=== PATIENT | female | born 1940 | race Caucasian/White ===

== ENCOUNTER → 2017-06-24 | Outpatient (CLI) | payer MEDICARE ==
[~2017-06-24] MED LIST: ACET-66 PO; BENA1TAB4 PO; CYCL5TAB PO; GLYB2.5T5 PO; INSLAN SQ; LOVA40TA2 PO; METF10002 PO; VITA-328 PO
== END | disposition home or self-care (01) ==
LOC: RADPV 09:41
PROVIDERS: ATTEND Family Medicine
DX: I65.21 Occlusion and stenosis of right carotid artery (principal)
CPT/HCPCS: 93880

== ENCOUNTER → 2017-08-10 | Outpatient (CLI) | payer MEDICARE, MEDICAID | END | disposition home or self-care (01) | LOC: RADPV 12:04 | PROVIDERS: ATTEND Family Medicine | DX: M77.31 Calcaneal spur, right foot (principal); I70.0 Atherosclerosis of aorta ==

== ENCOUNTER 2018-01-31 13:00 | Emergency (ER) | payer MEDICAID, MEDICARE ==
[~2018-01-31] VITALS: Ht 152.4 cm; Wt 67.3 kg
[~2018-01-31 13:00] MED LIST changes: -METF10002 PO; +METF10004 PO
[2018-01-31] MEDS ORDERED: INSNOV SQ (13:13)
[2018-01-31] MEDS ORDERED: VALS160T2 PO (13:13)
[2018-01-31] MEDS ORDERED: CALC-26 PO (13:13)
[2018-01-31] MEDS ORDERED: SITA100 PO (13:13)
[2018-01-31] MEDS ORDERED: LORA10TA7 PO (13:13)
[2018-01-31 13:17] LABS: GLUCOSE,POINT OF CARE 235 MG/DL (70-110)
[2018-01-31] MEDS ORDERED: ALBUTEROL SULFATE 2.5 MG/0.5 ML NEB SOLUTION NEB ONE ×2 (13:45→15:15)
[2018-01-31 13:55] LABS: BASOPHILS % (AUTO) 0.7 % (0.0-2.0); EOSINOPHILS % (AUTO) 1.1 % (1.0-6.0); HEMATOCRIT 39.1 % (36-46); HEMOGLOBIN 13.4 g/dL (12.0-16.0); LYMPHOCYTES # (AUTO) 1.7 K/uL (1.0-4.8); LYMPHOCYTES % (AUTO) 26.5 % (22.0-44.0); MEAN CORPUSCULAR HEMOGLOBIN 32.5 pg (26.0-34.0); MEAN CORPUSCULAR HGB CONC 34.2 G/dL (31.0-37.0); MEAN CORPUSCULAR VOLUME 95 fL (80-100); MONOCYTES # (AUTO) 0.9 K/uL (0.1-1.0); MONOCYTES % (AUTO) 14.8 % (2.0-9.0); NEUTROPHILS # (AUTO) 3.6 K/uL (1.8-7.7); NEUTROPHILS % (AUTO) 56.9 % (40.0-70.0); PLATELET COUNT (AUTO) 222 K/uL (150-450); RED CELL DISTRIBUTION WIDTH 14.6 % (11.5-14.5)
[2018-01-31 14:05] LABS: ANION GAP 4 mmol/L (8-16); CALCIUM, TOTAL 8.7 mg/dL (8.8-10.5); CARBON DIOXIDE 30 mmol/L (22-29); CHLORIDE 103 mmol/L (98-107); CREATININE 0.81 mg/dL (0.60-1.30); GLOMERULAR FILTR. RATE CALC > 60 mL/min (>60); GLUCOSE,RANDOM 169 mg/dL (70-110); POTASSIUM 3.9 mmol/L (3.5-5.1); SODIUM SERUM 137 mmol/L (136-145); UREA NITROGEN, BLOOD 13 mg/dL (7-18)
[2018-01-31 14:11] LABS: ALANINE AMINOTRANSFERASE 30 U/L (12-78); ALBUMIN 3.3 g/dL (3.4-5.0); ALKALINE PHOSPHATASE 71 U/L (46-116); ASPARTATE AMINOTRANSFERASE 26 U/L (15-37); BILIRUBIN,TOTAL 0.2 mg/dL (0.1-1.0); TOTAL PROTEIN, SERUM 7.6 g/dL (6.4-8.2)
[2018-01-31] MEDS ORDERED: 0.9% SODIUM CHLORIDE 5 ML NEB SOLUTION NEB ONE ×2 (14:15→15:19)
[2018-01-31 15:04] VITALS: BP 146/61
[2018-01-31 15:19] LABS: APPEARANCE,URINE CLOUDY (CLEAR); BILIRUBIN,URINE NEGATIVE (NEGATIVE); GLUCOSE, URINE (UA) 100 mg/dL (NEGATIVE); KETONES,URINE NEGATIVE (NEGATIVE); LEUKOCYTE ESTERASE ,URINE SMALL (NEGATIVE); NITRATE,URINE POSITIVE (NEGATIVE); OCCULT BLOOD,URINE TRACE (NEGATIVE); PROTEIN,URINE NEGATIVE (NEGATIVE); UROBILINOGEN,URINE 0.2 mg/dL (<=1.0)
[2018-01-31 15:28] LABS: BACTERIA,URINE Many /HPF (None Seen); RBC,URINE 0-2 /HPF (0-2); SQUAMOUS EPITHELIAL CELL,UR Few /LPF (None Seen)
[2018-01-31 15:39] LABS: INFLUENZA TYPE A NEGATIVE FOR TYPE A (NEGATIVE); INFLUENZA TYPE B NEGATIVE FOR TYPE B (NEGATIVE)
[2018-01-31] MEDS ORDERED: LEVOFLOXACIN 250 MG TABLET PO ONE (16:00)
[2018-01-31] MEDS ORDERED: ALBUTEROL SULFATE HFA 90 MCG/PUFF 8 GM INHALER IH ONE (16:00)
== END 2018-01-31 16:29 | disposition home or self-care (01) ==
LOC: EMS 13:01
DX: J40 Bronchitis, not specified as acute or chronic (principal); N39.0 Urinary tract infection, site not specified; E11.9 Type 2 diabetes mellitus without complications; Z79.4 Long term (current) use of insulin
CPT/HCPCS: 87086; 87804; 93005; 94640; 99285; J3535

== ENCOUNTER 2019-06-17 14:50 | Emergency (ER) | payer SELFPAY ==
[~2019-06-17] VITALS: Ht 152.4 cm; Wt 67.3 kg
[~2019-06-17 14:50] MED LIST changes: -BENA1TAB4 PO; +CALC-26 PO; -CYCL5TAB PO; -GLYB2.5T5 PO; +INSNOV SQ; +LORA10TA7 PO; +METF-446 PO; -METF10004 PO; +SITA100 PO; +VALS160T2 PO; -VITA-328 PO
[2019-06-17 15:15] LABS: GLUCOSE,POINT OF CARE 276 MG/DL (70-110)
[2019-06-17] MEDS ORDERED: PIOG30TA10 PO (15:16)
[2019-06-17] MEDS ORDERED: LISI-662 PO (15:16)
[2019-06-17] MEDS ORDERED: ASPI81 PO (15:16)
[2019-06-17] MEDS ORDERED: IBAN150T16 PO (15:16)
[2019-06-17] MEDS ORDERED: ACETAMINOPHEN 500 MG TABLET PO ONE (17:30)
[2019-06-17] MEDS ORDERED: KETOROLAC TROMETHAMINE 30 MG/ML VIAL IM ONE (19:00)
[2019-06-17 19:25] VITALS: BP 131/66
[2019-06-17 20:17] LABS: APPEARANCE,URINE CLOUDY (CLEAR); BILIRUBIN,URINE NEGATIVE (NEGATIVE); GLUCOSE, URINE (UA) 250 mg/dL (NEGATIVE); KETONES,URINE NEGATIVE (NEGATIVE); LEUKOCYTE ESTERASE ,URINE TRACE (NEGATIVE); NITRATE,URINE POSITIVE (NEGATIVE); OCCULT BLOOD,URINE TRACE (NEGATIVE); PROTEIN,URINE NEGATIVE (NEGATIVE); UROBILINOGEN,URINE 0.2 mg/dL (<=1.0)
[2019-06-17 20:26] LABS: BACTERIA,URINE Many /HPF (None Seen); RBC,URINE 0-2 /HPF (0-2)
[2019-06-17 20:28] LABS: SQUAMOUS EPITHELIAL CELL,UR Rare /LPF (None Seen)
== END 2019-06-17 20:09 | disposition home or self-care (01) ==
LOC: EMS 14:51
DX: N39.0 Urinary tract infection, site not specified (principal); R51 Headache; I10 Essential (primary) hypertension; E11.9 Type 2 diabetes mellitus without complications; E78.00 Pure hypercholesterolemia, unspecified; Z79.4 Long term (current) use of insulin; Z79.899 Other long term (current) drug therapy
CPT/HCPCS: 70450; 81001; 81002; 82962; 87077; 87086; 96372; 99284; J1885